=== PATIENT | female | born 1960 | race Caucasian/White ===

== ENCOUNTER 2018-08-14 11:47 | Emergency (ER) | payer BC ==
[~2018-08-14] VITALS: Ht 167.6 cm; Wt 62.1 kg
--- NOTE | 2018-08-14 11:47 | NUR ---
BIBRA 89 C/O LACERATION TO LEFT EYEBROW S/P SYNCOPAL EPISODE, TO ER BED 3, HOOKED TO MONITOR, CHANGED TO GOWN, AWAITING MD YUSUF
--- NOTE | 2018-08-14 11:53 | NUR ---
DR DOMINGUEZ AT BEDSIDE
[2018-08-14] MEDS ORDERED: TDAP [DIPH/PERTUSSIS/TET] 0.5 ML VIAL IM ONE ×2 (12:00→12:05)
--- NOTE | 2018-08-14 13:08 | NUR ---
Patient discharged to home in stable condition. Written and verbal after care instructions given. Patient verbalizes understanding of instruction.
[2018-08-14 13:11] VITALS: BP 136/83
== END 2018-08-14 13:11 | disposition home or self-care (01) ==
LOC: ER 11:50
DX: S00.12XA Contusion of left eyelid and periocular area, initial encounter (principal); R55 Syncope and collapse; X58.XXXA Exposure to other specified factors, initial encounter; Y93.89 Activity, other specified; Y92.89 Other specified places as the place of occurrence of the external cause; Y99.8 Other external cause status
CPT/HCPCS: 90715; A6403